=== PATIENT | female | born 1950 | race Caucasian/White ===

== ENCOUNTER 2025-03-26 22:45 | Emergency (ER) | payer BC, MEDICARE ==
[2025-03-26 22:55] VITALS: RESP 18; TEMP 98.4; BMI 27.8
[2025-03-27 00:37] VITALS: BP 146/59; PULSE 70
[2025-03-27] MEDS ORDERED: AMOX TR/POT CLAV 875MG/125MG TABLETS (FP) ONE (00:37)
[2025-03-27] MEDS: DIPHTH,PERTUSS(ACELL),TET 0.5 ML DISP.SYRIN IM ONE (01:01)
[2025-03-27] MEDS: AMOX TR/POT CLAV 500MG/125MG TABLETS (FP) PO ONE (01:01)
== END 2025-03-27 01:12 | disposition home or self-care (01) ==
LOC: FER 22:45
PROC: 3E0234Z Introduction of Serum, Toxoid and Vaccine into Muscle, Percutaneous Approach (ICD-10-PCS; principal; 2025-03-27)
DX: S02.2XXA Fracture of nasal bones, initial encounter for closed fracture (principal); Z23 Encounter for immunization; W10.9XXA Fall (on) (from) unspecified stairs and steps, initial encounter; Y92.009 Unspecified place in unspecified non-institutional (private) residence as the place of occurrence of the external cause
CPT/HCPCS: 70450-TC; 70486-TC; 90715; 99285-25